=== PATIENT | female | born 1940 | race Caucasian/White ===

== ENCOUNTER 2016-10-12 13:25 | Inpatient (IN) | payer MEDICARE, OTHER ==
[~2016-10-12] VITALS: Ht 157.5 cm; Wt 82.6 kg
[~2016-10-12 13:25] MED LIST: ARIC5TAB PO; ASPI81TA82 PO; LEVO75TA3 PO; LEXA20TA PO; LORA0.5T TOP; MIRT30TA PO; PRAV80 PO; PRIN10TA PO; PROT40TA PO; ZYPR10TA9 PO
--- NOTE | 2016-10-12 13:41 | PD ---
HPI Chief Complaint: Monte act Time Seen by Provider: 13:41 Travel History International Travel<30 days: No Contact w/Intl Traveler<30days: No Traveled to known affect area: No History of Present Illness HPI 76-year-old female with history of dementia with behavioral disturbance presents to emergency department for evaluation under [place] act. Patient has been combative with staff at her place of residence. She has been pulling fire alarms and threatening homicide to staff. She has been refusing her medication. She is sent here for psychiatric evaluation and med stabilization. Patient states that she is fine. Denies any acute medical needs at this time. States that she "does not know what they are talking about." PFSH Past Medical History Asthma: No Autoimmune Disease: No Blood Disorders: No Bipolar Disorder: Yes Anxiety: Yes Depression: Yes Heart Rhythm Problems: Yes (ATRIAL FIB) Cancer: No Cardiovascular Problems: No Chemotherapy: No COPD: No Dementia: Yes Diabetes: Yes Diminished Hearing: No Endocrine: No Genitourinary: No Immune Disorder: No Musculoskeletal: No Neurologic: No Psychiatric: Yes Respiratory: No Radiation Therapy: No : 2 Para: 2 Past Surgical History Abdominal Surgery: Yes (APPENDECTOMY) Appendectomy: Yes Endocrine Surgery: Yes (TONSILLECTOMY AGE 18) Gynecologic Surgery: Yes (HYSTERECTOMY) Hysterectomy: Yes Pacemaker: No Tonsillectomy: Yes Social History Alcohol Use: Yes (none in the past few years) Tobacco Use: Yes (none in the past few years) Substance Use: Yes Allergies-Medications (Allergen,Severity, Reaction): Coded Allergies: [place] (Verified Allergy, Severe, 02/24/14) Haldol (Unverified Allergy, Unknown, 02/25/14) Per MAR from facility. Neosporin (Unverified Allergy, Unknown, 02/24/14) Penicillin (Unverified Allergy, Unknown, 02/24/14) Prozac (Verified Allergy, Unknown, UNKNOWN, 02/24/14) Risperdal (Unverified Allergy, Unknown, 02/24/14) Reported Meds & Prescriptions Reported Meds & Active Scripts Active Protonix (Pantoprazole Sodium) 40 Mg Tabdr 40 Mg PO DAILY 30 Days Reported Prinivil (Lisinopril) 10 Mg Tab 10 Mg PO DAILY Pravastatin Sodium 80 Mg Tab 1 Tab PO DAILY Zyprexa Zydis (Olanzapine) 10 Mg Tab 5 Mg PO Q12 Protonix (Pantoprazole Sodium) 40 Mg Tab 40 Mg PO DAILY Mirtazapine 30 Mg Tab 30 Mg PO HS Lexapro (Escitalopram Oxalate) 20 Mg Tab 20 Mg PO DAILY Levothyroxine 75 mcg (Levothyroxine Sodium) 75 Mcg Tab 1 Tab PO DAILY Lorazepam 0.5 Mg Tab 0.5 Mg TOP BID Aricept (Donepezil HCl) 5 Mg Tab 5 Mg PO DAILY Aspir-81 (Aspirin) 81 Mg Tab 81 Mg PO DAILY Review of Systems ROS Limitations: Poor Historian Except as stated in HPI: all other systems reviewed are Neg Physical Exam Exam Limitations: Poor Historian Narrative GENERAL: Well-nourished elderly female patient, in no acute distress SKIN: Focused skin assessment warm/dry. HEAD: Atraumatic. Normocephalic. EYES: Pupils equal and round. No scleral icterus. No injection or drainage. ENT: No nasal bleeding or discharge. Mucous membranes pink and moist. NECK: Trachea midline. No JVD. CARDIOVASCULAR: Regular rate and rhythm. No murmur appreciated. RESPIRATORY: No accessory muscle use. Clear to auscultation. Breath sounds equal bilaterally. GASTROINTESTINAL: Abdomen soft, non-tender, nondistended. Hepatic and splenic margins not palpable. MUSCULOSKELETAL: No obvious deformities. No clubbing. No cyanosis. No edema. NEUROLOGICAL: Awake and alert. No obvious cranial nerve deficits. Motor grossly within normal limits. Normal speech. Data Data Last Documented VS Vital Signs Date Time Temp Pulse Resp B/P Pulse Ox O2 Delivery O2 Flow Rate FiO2 10/12/16 18:33 95 18 132/74 95 Room Air 10/12/16 16:37 97.1 Orders Complete Blood Count With Diff (10/12/16 13:41) Comprehensive Metabolic Panel (10/12/16 13:41) Urinalysis - C+S If Indicated (10/12/16 13:41) Electrocardiogram (10/12/16 13:41) Psych Screen (10/12/16 13:41) Drug Screen, Random Urine (10/12/16 13:41) Alcohol (Ethanol) (10/12/16 13:41) Urine Culture (10/12/16 17:45) Labs Laboratory Tests Test 10/12/16 10/12/16 13:50 17:45 White Blood Count 4.6 TH/MM3 Red Blood Count 3.89 MIL/MM3 Hemoglobin 10.7 GM/DL Hematocrit 33.6 % Mean Corpuscular Volume 86.4 FL Mean Corpuscular Hemoglobin 27.5 PG Mean Corpuscular Hemoglobin 31.9 % Concent Red Cell Distribution Width 15.7 % Platelet Count 235 TH/MM3 Mean Platelet Volume 9.0 FL Neutrophils (%) (Auto) 48.0 % Lymphocytes (%) (Auto) 41.9 % Monocytes (%) (Auto) 7.3 % Eosinophils (%) (Auto) 2.1 % Basophils (%) (Auto) 0.7 % Neutrophils # (Auto) 2.2 TH/MM3 Lymphocytes # (Auto) 1.9 TH/MM3 Monocytes # (Auto) 0.3 TH/MM3 Eosinophils # (Auto) 0.1 TH/MM3 Basophils # (Auto) 0.0 TH/MM3 CBC Comment DIFF FINAL Differential Comment Sodium Level 138 MEQ/L Potassium Level 4.6 MEQ/L Chloride Level 107 MEQ/L Carbon Dioxide Level 24.6 MEQ/L Anion Gap 6 MEQ/L Blood Urea Nitrogen 9 MG/DL Creatinine 1.09 MG/DL Estimat Glomerular Filtration 49 ML/MIN Rate Random Glucose 106 MG/DL Calcium Level 9.0 MG/DL Total Bilirubin 0.3 MG/DL Aspartate Amino Transf 20 U/L (AST/SGOT) Alanine Aminotransferase 18 U/L (ALT/SGPT) Alkaline Phosphatase 48 U/L Total Protein 5.8 GM/DL Albumin 3.0 GM/DL Ethyl Alcohol Level LESS THAN 3 MG/DL Urine Color YELLOW Urine Turbidity CLEAR Urine pH 6.5 Urine Specific [place] 1.012 Urine Protein NEG mg/dL Urine Glucose (UA) NEG mg/dL Urine Ketones NEG mg/dL Urine Occult Blood NEG Urine Nitrite NEG Urine Bilirubin NEG Urine Urobilinogen LESS THAN 2.0 MG/DL Urine Leukocyte Esterase LARGE Urine RBC 1 /hpf Urine WBC 29 /hpf Urine Squamous Epithelial <1 /hpf Cells Urine Bacteria RARE /hpf Urine Hyaline Casts 10 /lpf Urine Mucus FEW /lpf Microscopic Urinalysis Comment CULTURE INDICATED Urine Opiates Screen NEG Urine Barbiturates Screen NEG Urine Amphetamines Screen NEG Urine Benzodiazepines Screen POS Urine Cocaine Screen NEG Urine Cannabinoids Screen NEG MDM Medical Decision Making Medical Screen Exam Complete: Yes Emergency Medical Condition: Yes Medical Record Reviewed: Yes Differential Diagnosis Mood disorder versus personality disorder versus dementia versus adjustment reaction disorder versus UTI Narrative Course 76-year-old female presents to the emergency department under a Monte act for psychiatric evaluation. Patient appears without distress. Laboratory Tests Test 10/12/16 10/12/16 13:50 17:45 White Blood Count 4.6 TH/MM3 Red Blood Count 3.89 MIL/MM3 Hemoglobin 10.7 GM/DL Hematocrit 33.6 % Mean Corpuscular Volume 86.4 FL Mean Corpuscular Hemoglobin 27.5 PG Mean Corpuscular Hemoglobin 31.9 % Concent Red Cell Distribution Width 15.7 % Platelet Count 235 TH/MM3 Mean Platelet Volume 9.0 FL Neutrophils (%) (Auto) 48.0 % Lymphocytes (%) (Auto) 41.9 % Monocytes (%) (Auto) 7.3 % Eosinophils (%) (Auto) 2.1 % Basophils (%) (Auto) 0.7 % Neutrophils # (Auto) 2.2 TH/MM3 Lymphocytes # (Auto) 1.9 TH/MM3 Monocytes # (Auto) 0.3 TH/MM3 Eosinophils # (Auto) 0.1 TH/MM3 Basophils # (Auto) 0.0 TH/MM3 CBC Comment DIFF FINAL Differential Comment Sodium Level 138 MEQ/L Potassium Level 4.6 MEQ/L Chloride Level 107 MEQ/L Carbon Dioxide Level 24.6 MEQ/L Anion Gap 6 MEQ/L Blood Urea Nitrogen 9 MG/DL Creatinine 1.09 MG/DL Estimat Glomerular Filtration 49 ML/MIN Rate Random Glucose 106 MG/DL Calcium Level 9.0 MG/DL Total Bilirubin 0.3 MG/DL Aspartate Amino Transf 20 U/L (AST/SGOT) Alanine Aminotransferase 18 U/L (ALT/SGPT) Alkaline Phosphatase 48 U/L Total Protein 5.8 GM/DL Albumin 3.0 GM/DL Ethyl Alcohol Level LESS THAN 3 MG/DL Urine Color YELLOW Urine Turbidity CLEAR Urine pH 6.5 Urine Specific [place] 1.012 Urine Protein NEG mg/dL Urine Glucose (UA) NEG mg/dL Urine Ketones NEG mg/dL Urine Occult Blood NEG Urine Nitrite NEG Urine Bilirubin NEG Urine Urobilinogen LESS THAN 2.0 MG/DL Urine Leukocyte Esterase LARGE Urine RBC 1 /hpf Urine WBC 29 /hpf Urine Squamous Epithelial <1 /hpf Cells Urine Bacteria RARE /hpf Urine Hyaline Casts 10 /lpf Urine Mucus FEW /lpf Microscopic Urinalysis Comment CULTURE INDICATED Urine Opiates Screen NEG Urine Barbiturates Screen NEG Urine Amphetamines Screen NEG Urine Benzodiazepines Screen POS Urine Cocaine Screen NEG Urine Cannabinoids Screen NEG CBC and BMP are without acute concern. Patient be treated for UTI based on lab results. She is started on Macrobid. She is medically cleared and a psychiatric screening for further evaluation and disposition. Mental health screening discussed with the patient. Psychiatric screen ordered. Diagnosis Primary Impression: Bipolar 1 disorder Additional Impression: UTI (urinary tract infection) Qualified Code: N39.0 - Urinary tract infection without hematuria, site unspecified Condition: Stable Sara Greer Oct 12, 2016 13:41
[2016-10-12 14:19] LABS: AUTOMATED NEUTROPHIL # 2.2 TH/MM3 (1.8-7.7); BASOPHIL % 0.7 % (0.0-2.0); EOSINOPHIL # 0.1 TH/MM3 (0-0.4); EOSINOPHIL % 2.1 % (0.0-4.0); HEMATOCRIT 33.6 % (35.0-46.0); HEMO FLAGS DIFF FINAL; LYMPH % 41.9 % (9.0-44.0); LYMPHOCYTE # 1.9 TH/MM3 (1.0-4.8); MEAN CELL VOLUME 86.4 FL (80.0-100.0); MEAN CORPUSCULAR HEMOGLOBIN 27.5 PG (27.0-34.0); MEAN CORPUSCULAR HGB CONC 31.9 % (32.0-36.0); MONO % 7.3 % (0.0-8.0); PLATELET COUNT 235 TH/MM3 (150-450); RED BLOOD COUNT 3.89 MIL/MM3 (4.00-5.30); RED CELL DISTRIBUTION WIDTH 15.7 % (11.6-17.2); WHITE BLOOD COUNT 4.6 TH/MM3 (4.0-11.0)
[2016-10-12 14:35] LABS: ALT (GPT) 18 U/L (10-53); ANION GAP 6 MEQ/L (5-15); AST (GOT) 20 U/L (15-37); BICARBONATE 24.6 MEQ/L (21.0-32.0); BLOOD UREA NITROGEN 9 MG/DL (7-18); CHLORIDE 107 MEQ/L (98-107); GLOMERULAR FILTRATION RATE 49 ML/MIN (>89); POTASSIUM 4.6 MEQ/L (3.5-5.1); SODIUM (NA) 138 MEQ/L (136-145)
[2016-10-12 14:37] VITALS: BP 138/68; PULSE 70; RESP 16; TEMP 98.2; O2SAT 98
[2016-10-12 14:37] LABS: ALKALINE PHOSPHATASE 48 U/L (45-117); TOTAL BILIRUBIN ADULT 0.3 MG/DL (0.2-1.0)
[2016-10-12 16:37] VITALS: BP 141/64; PULSE 91; RESP 18; TEMP 97.1; O2SAT 99
[2016-10-12 18:08] LABS: AMPHETAMINE, URINE NEG (NEG); BARBITURATES, URINE NEG (NEG); COCAINE, URINE NEG (NEG)
[2016-10-12 18:10] LABS: BACTERIA, URINE RARE /hpf; BLOOD, URINE NEG (NEG); GLUCOSE,URINE NEG (NEG); HYALINE CAST, URINE 10 /lpf (RARE); KETONE, URINE NEG (NEG); MUCUS URINE FEW /lpf (OCC); NITRITE,URINE NEG (NEG); PH, URINE 6.5 (5.0-8.5); SQUAMOUS EPITHELIAL CELL URINE <1 /hpf (0-5); URINE COLOR YELLOW (YELLW/STRAW)
[2016-10-12 18:11] LABS: COMMENT (UR) CULTURE INDICATED; CULTURE IF INDICATED CULTURE INDICATED
[2016-10-12 18:33] VITALS: BP 132/74; PULSE 95; RESP 18; O2SAT 95
[2016-10-12] MEDS: NITROFURANTOIN MONOHYD MACROCR 100 MG CAP PO SCH (21:27)
[2016-10-12 22:00] VITALS: BP 152/74; PULSE 89; RESP 20; O2SAT 98
[2016-10-12] MEDS ORDERED: ASPI81CH CHEW (22:00)
[2016-10-12] MEDS ORDERED: TEMA30CA PO (22:00)
[2016-10-12] MEDS ORDERED: ALEN1TAB48 PO (22:00)
[2016-10-12] MEDS ORDERED: CLON1TAB PO (22:00)
[2016-10-12] MEDS ORDERED: SERO100T PO ×2 (22:00)
[2016-10-12] MEDS ORDERED: TRAM50TA PO (22:00)
[2016-10-12] MEDS ORDERED: DONE10TA7 PO (22:00)
[2016-10-12] MEDS ORDERED: SYNT88TA PO (22:00)
[2016-10-12] MEDS ORDERED: AMIT25TA9 PO (22:00)
[2016-10-12] MEDS ORDERED: DICL1CAP4 PO (22:00)
[2016-10-12] MEDS ORDERED: CITA40TA4 PO (22:00)
[2016-10-12] MEDS ORDERED: PRAV80TA2 PO (22:00)
[2016-10-12] MEDS ORDERED: LOSA25TA PO (22:00)
[2016-10-12] MEDS ORDERED: ARIP1TAB16 PO (22:00)
[2016-10-12] MEDS ORDERED: LORazepam 0.5 MG TAB PO ONE (22:15)
[2016-10-12] MEDS ORDERED: OLANZapine 5 MG TAB PO ONE (22:15)
[2016-10-13] MEDS ORDERED: LORazepam 2 MG/ML VIAL - age > 65 yrs IM PRN (00:15)
[2016-10-13] MEDS ORDERED: ALUMINUM/MAGNESIUM/SIMETH 30 ML CUP PO PRN (00:15)
[2016-10-13 01:40] VITALS: BP 177/81; PULSE 84; RESP 18; TEMP 97; O2SAT 99
[2016-10-13] MEDS: TEMAZEPAM 15 MG CAP PO PRN (01:43)
[2016-10-13] MEDS: ACETAMINOPHEN 325 MG TAB PO PRN ×2 (04:47→09:43)
[2016-10-13] MEDS: LEVOTHYROXINE SODIUM 88 MCG TAB PO SCH (04:48)
[2016-10-13 05:46] VITALS: BP 139/72; PULSE 80; RESP 16; TEMP 96.9; O2SAT 96
[2016-10-13] MEDS: ARIPiprazole 2 MG TAB PO SCH (09:00)
[2016-10-13] MEDS: DICLOFENAC SODIUM 75 MG DELAYED RELEASE TAB PO SCH ×2 (09:41→21:04)
[2016-10-13] MEDS: NITROFURANTOIN MONOHYD MACROCR 100 MG CAP PO SCH ×2 (09:41→18:31)
[2016-10-13] MEDS: LOSARTAN 25 MG TAB PO SCH (09:42)
[2016-10-13] MEDS: clonazePAM 1 MG TAB PO SCH ×3 (09:42→18:31)
[2016-10-13] MEDS: QUEtiapine FUMARATE 100 MG TAB PO SCH (09:42)
[2016-10-13] MEDS: CITALOPRAM HYDROBROMIDE 40 MG TAB PO SCH (09:42)
[2016-10-13] MEDS: ASPIRIN 81 MG CHEW TAB PO SCH (09:42)
--- NOTE | 2016-10-13 13:56 | EKG ---
Date Performed: 10/12/2016 Time Performed: 17:49:21 PTAGE: 76 years EKG: Sinus rhythm MODERATE T-WAVE ABNORMALITY, CONSIDER ANTERIOR ISCHEMIA ABNORMAL ECG PREVIOUS TRACING : 03/10/2014 11.02 Compared to the previous tracing anterior T wave changes ar e now present. Consider anterior ischemia. DOCTOR: Josue Reed Interpretating Date/Time 10/13/2016 13:55:37
--- NOTE | 2016-10-13 16:14 | PD.CONS ---
HPI Service [facility] Hospitalists Consult Requested By Primary Care Physician Silvia Rodriguez MD Diagnoses: History of Present Illness Pt is 76 yo with bipolar d/o, dementia, psychosis who admitted to psych unit under Monte Act. Per chart she became paranoid and agitated and [place] Acted by Police. When I arrived pt sitting in dayroom and very cooperative. Able to give some hx but clearly with some delusions. denies any medical complaints. Review of Systems Other denies any cp/sob Past Family Social History Past Medical History bipolar hypothyroidism htn appe hysterectomy tonsillectomy dementia Reported Medications Seroquel (Quetiapine Fumarate) 100 Mg Tab 100 Mg PO HS Clonazepam 1 Mg Tab 1 Mg PO TID Zorvolex (Diclofenac) 35 Mg Cap 75 Mg PO BID Tramadol (Tramadol HCl) 50 Mg Tab 50 Mg PO Q12HR PRN Temazepam 30 Mg Cap 30 Mg PO HS PRN Amitriptyline (Amitriptyline HCl) 25 Mg Tab 25 Mg PO HS Donepezil 10 Mg Tab 10 Mg PO HS Pravastatin 80 Mg Tab 80 Mg PO HS Alendronate (Alendronate Sodium) 70 Mg Tab 70 Mg PO Q7D Aripiprazole 2 Mg Tab 2 Mg PO DAILY Synthroid (Levothyroxine Sodium) 88 Mcg Tab 88 Mcg PO DAILY Losartan (Losartan Potassium) 25 Mg Tab 25 Mg PO DAILY Citalopram (Citalopram Hydrobromide) 40 Mg Tab 40 Mg PO DAILY Aspirin 81 Mg Chew 81 Mg CHEW DAILY Seroquel (Quetiapine Fumarate) 100 Mg Tab 100 Mg PO DAILY Allergies: Coded Allergies: [place] (Verified Allergy, Severe, 02/24/14) Haldol (Unverified Allergy, Unknown, 02/25/14) Per MAR from facility. Neosporin (Unverified Allergy, Unknown, 02/24/14) Penicillin (Unverified Allergy, Unknown, 02/24/14) Prozac (Verified Allergy, Unknown, UNKNOWN, 02/24/14) Risperdal (Unverified Allergy, Unknown, 02/24/14) Family History nc Social History no etoh/tob Physical Exam Vital Signs mild dementia heart reg lung cta abd s/nt ext on edema Vital Signs Date Time Temp Pulse Resp B/P Pulse Ox O2 Delivery O2 Flow Rate FiO2 10/13/16 05:46 96.9 80 16 139/72 96 10/13/16 01:40 97.0 84 18 177/81 99 10/12/16 22:00 89 20 152/74 98 Room Air 10/12/16 18:33 95 18 132/74 95 Room Air 10/12/16 16:37 97.1 91 18 141/64 99 Room Air Laboratory Laboratory Tests Test 10/12/16 17:45 Urine Color YELLOW Urine Turbidity CLEAR Urine pH 6.5 Urine Specific [place] 1.012 Urine Protein NEG Urine Glucose (UA) NEG Urine Ketones NEG Urine Occult Blood NEG Urine Nitrite NEG Urine Bilirubin NEG Urine Urobilinogen LESS THAN 2.0 Urine Leukocyte Esterase LARGE Urine RBC 1 Urine WBC 29 Urine Squamous Epithelial <1 Cells Urine Bacteria RARE Urine Hyaline Casts 10 Urine Mucus FEW Microscopic Urinalysis Comment CULTURE INDICATED Urine Opiates Screen NEG Urine Barbiturates Screen NEG Urine Amphetamines Screen NEG Urine Benzodiazepines Screen POS Urine Cocaine Screen NEG Urine Cannabinoids Screen NEG Date/Time Procedure Status Source Growth 10/12/16 17:45 Urine Culture - Preliminary Resulted Urine Random Urine IMMATURE GROWTH - REINCUBATE Result Diagram: 10/12/16 1350 10/12/16 1350 Assessment and Plan Problem List: (1) Bipolar 1 disorder Status: Acute Plan: Pt with some dementia and bipoar d/o with psychosis. Medically pt appears stable cont currrent meds for htn/hypothyroidism/hyperlipidema psych issues per Dr Henry f/u urine cx (2) Hypothyroid Status: Chronic (3) HTN (hypertension) Status: Chronic Alvin Trejo MD Oct 13, 2016 16:14
--- NOTE | 2016-10-13 17:39 | MH ---
cc: MALKA GARDUNO DATE OF ADMISSION: 10/12/2016 PRESENTING CHIEF COMPLAINT AND HISTORY OF PRESENT ILLNESS This 76-year-old white female was brought to the emergency room of this hospital from the assisted-living facility under the [place] Act initiated by the police. She reportedly has been increasingly aggressive, paranoid and had made threats of harm to the staff. In the emergency room, she was evaluated by the emergency room physician and was considered medically stable. She was evaluated by the psychiatric screener and was found to be quite guarded and denied the information provided in the Monte Act. The case was discussed with me and it was felt she needed to be hospitalized for further assessment treatment. Ms. Glasgow is well-known to me from her previous admissions to this hospital dating back to 2004 and then in February of 2014. She carries a diagnosis of bipolar affective disorder and both of her previous admissions resulted from severe depression with psychotic symptoms in the form of delusions believing that her food was being poisoned and she refused to eat. It took her a long time to stabilize. After discharge from her last admission I continued to follow her in my office. She continued to progress steadily to the point where from there she was able to move into her own apartment was able to drive a car and take care of her activities of daily living. However, towards the end, i.e., around April of 2016, she began to focus very much on her weight gain and as such the dose of Zyprexa was decreased per her request. She was reminded that her delusions might re-appear. In her last session on 05/05/16, she displayed some paranoia believing that her CPA, who is her power of real estate attorney, had refused her monthly payments of $1200.00 because the tenants of her rental property were no longer making payments. In addition, she began to alienate herself from her sister who lives in the area and is very supportive of her. The dose of Zyprexa was increased to 10 milligrams at bedtime. Her two follow up appointments in May were no shows and since then I have not seen her in my office. I did get discharge papers from admission to [facility] where she was admitted in May of 2016. While there she was seen in consultation by a psychiatrist, Angie Boyd. She was discharged on Abilify 2 milligrams at bedtime and Celexa 40 milligrams daily. At the time of this evaluation, Ms. Glasgow was anxious, apprehensive and guarded. She seemed very pleased and reassured with my presence and remarked, "I'm so glad to see you, now I feel safe here". She went on to state that since admission she has been afraid that people are going to harm her. When asked about her understanding of the reason for this hospitalization she gave a very detailed and elaborate account "my CPA who is my power of real estate attorney, stopped giving me the checks. He sold my condominium and put me in the assisted living facility. I've been there for a couple of months. I don't like that place. The food there is poisoned". She stated that she has not been sleeping well and her appetite had decreased though she denied any significant weight loss. When inquired as to how her mood has been over the past three months, she responded, "Not too bad". On direct questioning, she denied entertaining any suicidal thoughts or any previous suicide attempts. However my records indicate that she had previously attempted suicide by overdose. On further direct questioning, she denied experiencing delusions of grandeur, euphoria, racing thoughts, spending sprees, hypersexuality, et cetera. PAST PSYCHIATRIC HISTORY: She has had several psychiatric hospitalizations in 2003 and 2004. She has previously been admitted to [facility] as well. Her last admission to this hospital was in February 2014 under my care. Since then she has been admitted to [facility] in May 2016. As mentioned she had been followed by me in the office up until April 2016. Her medications under my service were Lexapro 20 mg daily, Zyprexa 10 mg daily, Xanax 0.5 mg three times a day p.r.n. for anxiety, Aricept 10 mg p.o. daily, Lexapro 20 mg daily. PAST MEDICAL HISTORY: 1. She has had history of urinary tract infection. A routine urinalysis done in the ER also recommended culture and sensitivity. 2. In addition she has history of hyponatremia secondary SIADH. 3. Hypertension. 4. Hypothyroidism. 5. She has also has had questionable history of diabetes but has not been any medication for it. 6. She has reported history of atrial fibrillation. 7. She is status post appendectomy, hysterectomy, tonsillectomy. ALLERGIES: SHE IS ALLERGIC TO: 1. LITHIUM. 2. HALDOL. 3. NEOSPORIN. 4. PENICILLIN. 5. PROZAC. 6. RISPERDAL. CURRENT MEDICATIONS: Her current medications are: 1. Pravachol 80 milligrams at bedtime. 2. Aricept 10 milligrams p.o. at bedtime. 3. Elavil 25 milligrams at bedtime. 4. Seroquel 100 milligrams daily and 100 at bedtime. 5. Abilify 2 milligrams daily. 6. Voltaren 25 milligrams twice a day. 7. Klonopin 1 milligram three times a day. 8. Aspirin 81 milligrams daily. 9. Celexa 40 milligrams daily. 10. Cozaar 25 milligrams daily. 11. Synthroid 88 micrograms daily. 12. Restoril 30 milligrams at bedtime PRN for insomnia. 13. Microbid 100 milligrams twice a day p.c. 14. She was also on Tramadol which I discontinued to avoid any possibility of serotonin syndrome in combination with Celexa. FAMILY HISTORY: Her parents are . She had a brother who and four sisters, one of whom lives locally. There is no reported family history of psychiatric illness or substance abuse. PERSONAL AND SOCIAL HISTORY: She was born in [facility] and dropped out of school in the 9th grade. 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 She was three times. Her first . She her second and the third also . She has two sons and a daughter. She does have a history of alcohol abuse; however, claimed that she has not used any alcoholic beverage for several years. She denied any drug abuse. She is currently living in an assisted living facility. CLINICAL OBSERVATION AND MENTAL STATUS EXAMINATION: At the time of this evaluation Miss Glasgow presented as a somewhat poorly groomed unkempt white female who looked her stated age. She was quite anxious-looking and very apprehensive. She was over-elaborate and overinclusive in her responses to questions mostly centering on what she described as "a conspiracy" on the part of her CPA and her sister. She also verbalized similar fear of the staff on the unit claiming that some of the staff were out to harm her. No overt anger or hostility. However, she responded very well to reassurance and support from me. No bizarre behavioral mannerisms were noticed. Her speech was coherent and appropriate, not rapid or pressured. Her affect was anxious, somewhat blunted. Subjectively she described her mood as "I haven't been feeling too good." Thought processes revealed some circumstantiality but no tangentiality or looseness of associations or flight of ideas. As mentioned she was preoccupied with delusions of persecution. No auditory or visual hallucinations were noticed or reported. She denied active suicidal or homicidal ideations or intent at this time. She had previously attempted suicide. She denied any previous suicide attempts. However my records indicate that she had previously attempted suicide once by overdose several years ago. Cognitive functions: She was alert, oriented to place, person and situation. She gave the date as "October 13, it is ." Memory: Immediate - she could 5 digits forward and three digits backward. Recent - she could recall only two out of three objects after five minutes. Remote - she could recall presidents up to President Obama only. Her attention and concentration were impaired. She could do serial 7's up to 86 only. Her insight and judgment were felt to be fair. REVIEW OF SYSTEMS: She denied any diarrhea, vomiting or abdominal pain. She denied any dysuria, hematuria or frequency. She denied any chest pain, palpitation, dyspnea on exertion. She denied muscle weakness, numbness or history of seizures. PHYSICAL EXAMINATION: Physical examination was not done as this has already been done in the emergency room and will also be done by the medical administrator on the case. DIAGNOSTIC IMPRESSION: AXIS I: Bipolar affective disorder depressed with psychotic features. Dementia, mild. AXIS II: No diagnosis. AXIS III: Hyponatremia secondary to SIADH. Hypothyroidism. History of atrial fibrillation. Urinary tract infection. Questionable history of diabetes. Questionable history of chronic obstructive pulmonary disease. Hypertension. Hyperlipidemia. AXIS IV: Severity of psychosocial stressors, moderate, i.e., moderate, i.e., chronic psychiatric illness, multiple medical problems, change in living situation. AXIS V: Current GAF score 30. FORMULATION AND TREATMENT PLAN: Based on this evaluation and my knowledge of her case, Ms. Glasgow suffers from bipolar affective disorder. She has had very few hypomanic episodes and mostly she has required hospitalizations due to severe depression with psychotic symptoms. The clinical presentation at this time is similar to the one in 2013 and in 2004. Another factor that seems to have contributed to her current decompensation is noncompliance. As I mentioned, she had started overemphasizing her weight gain and insisted on reducing the dose of her medications, not realizing the potential complications including the hospitalization. As such as she will be restarted on the Zyprexa, the Lexapro, Remeron, Aricept Xanax and Restoril. She usually takes a long time to stabilize. I hope this will not be the case this time as she has established good rapport with me and is open to any treatment plan / medications that will be recommended. Simultaneously she will be involved in individual psychotherapy primarily supportive and educative in nature. She will participate in various other unit activities i.e. occupational therapy, recreational therapy, group therapy. Medical consult will be requested for assistance in the management of her medical problems. Her identified problems are: 1. Depression. 2. Psychosis. 3. Noncompliance. 4. Current psychosocial stressors. Her assets are: 1. She is verbal. 2. Ability to access healthcare. Her estimated length of stay is five to ten days. MD YAMIL Portillo/VERENICE /4:20 PM /5:01 PM
[2016-10-13 19:18] VITALS: BP 137/67; PULSE 86; RESP 16; TEMP 97.3; O2SAT 96
[2016-10-13] MEDS ORDERED: AMITRIPTYLINE HCL 25 MG TAB PO SCH (21:00)
[2016-10-13] MEDS ORDERED: QUEtiapine FUMARATE 100 MG TAB PO SCH (21:00)
[2016-10-13] MEDS: DONEPEZIL HCL 5 MG TAB PO SCH (21:04)
[2016-10-13] MEDS: PRAVASTATIN SOD 80 MG TAB PO SCH (21:04)
[2016-10-13] MEDS: MAGNESIUM HYDROXIDE SUSP 30 ML CUP PO PRN (21:27)
[2016-10-14] MEDS: LEVOTHYROXINE SODIUM 88 MCG TAB PO SCH (05:44)
[2016-10-14 06:22] VITALS: BP 163/70; PULSE 98; TEMP 98; O2SAT 95
[2016-10-14] MEDS: ACETAMINOPHEN 325 MG TAB PO PRN (06:24)
[2016-10-14] MEDS ORDERED: ALENDRONATE 70 MG PO SCH (09:00)
[2016-10-14] MEDS: ASPIRIN 81 MG CHEW TAB PO SCH (09:00)
[2016-10-14] MEDS: ARIPiprazole 2 MG TAB PO SCH (09:00)
[2016-10-14] MEDS: QUEtiapine FUMARATE 100 MG TAB PO SCH (09:28)
[2016-10-14] MEDS: CITALOPRAM HYDROBROMIDE 40 MG TAB PO SCH (09:28)
[2016-10-14] MEDS: DICLOFENAC SODIUM 75 MG DELAYED RELEASE TAB PO SCH ×2 (09:29→21:00)
[2016-10-14] MEDS: clonazePAM 1 MG TAB PO SCH ×2 (09:29→13:00)
[2016-10-14] MEDS: LOSARTAN 25 MG TAB PO SCH (09:29)
[2016-10-14] MEDS: NITROFURANTOIN MONOHYD MACROCR 100 MG CAP PO SCH ×2 (09:29→18:42)
[2016-10-14 11:37] LABS: ALKALINE PHOSPHATASE 52 U/L (45-117); ALT (GPT) 16 U/L (10-53); ANION GAP 8 MEQ/L (5-15); AST (GOT) 15 U/L (15-37); BICARBONATE 26.4 MEQ/L (21.0-32.0); BLOOD UREA NITROGEN 14 MG/DL (7-18); CHLORIDE 104 MEQ/L (98-107); FREE T4 1.16 NG/DL (0.76-1.46); GLOMERULAR FILTRATION RATE 53 ML/MIN (>89); HDL CHOLESTEROL 43.5 MG/DL (40.0-60.0); LDL CHOLESTEROL 47 MG/DL (0-99); POTASSIUM 4.3 MEQ/L (3.5-5.1); SODIUM (NA) 138 MEQ/L (136-145); TOTAL BILIRUBIN ADULT 0.4 MG/DL (0.2-1.0)
[2016-10-14 14:26] LABS: HEMOGLOBIN A1a 1.5 %; HEMOGLOBIN A1b 0.8 %; HEMOGLOBIN Ao 85.2 %; HEMOGLOBIN F 1.1 %; HEMOGLOBIN P3 3.4 %
[2016-10-14 18:38] VITALS: BP 161/77; PULSE 84; RESP 18; TEMP 97.6; O2SAT 95
[2016-10-14] MEDS: clonazePAM 0.5 MG TAB PO SCH (18:41)
[2016-10-14 19:47] LABS: BLOOD, URINE NEG (NEG); COMMENT (UR) CULT NOT INDICATED; CULTURE IF INDICATED CULT NOT INDICATED; GLUCOSE,URINE NEG (NEG); HYALINE CAST, URINE 2 /lpf (RARE); KETONE, URINE NEG (NEG); MUCUS URINE FEW /lpf (OCC); NITRITE,URINE NEG (NEG); SQUAMOUS EPITHELIAL CELL URINE 1 /hpf (0-5); URINE COLOR YELLOW (YELLW/STRAW)
[2016-10-14] MEDS: TEMAZEPAM 15 MG CAP PO PRN (21:02)
[2016-10-14] MEDS: PRAVASTATIN SOD 80 MG TAB PO SCH (21:02)
[2016-10-14] MEDS: DONEPEZIL HCL 5 MG TAB PO SCH (21:34)
[2016-10-15] MEDS: ACETAMINOPHEN 325 MG TAB PO PRN ×2 (04:14→08:58)
[2016-10-15] MEDS: LEVOTHYROXINE SODIUM 88 MCG TAB PO SCH (05:08)
[2016-10-15 06:23] VITALS: BP 145/70; PULSE 86; RESP 18; TEMP 98; O2SAT 92
[2016-10-15] MEDS: clonazePAM 0.5 MG TAB PO SCH ×3 (08:25→20:04)
[2016-10-15] MEDS: NITROFURANTOIN MONOHYD MACROCR 100 MG CAP PO SCH ×2 (08:25→20:04)
[2016-10-15] MEDS: DICLOFENAC SODIUM 75 MG DELAYED RELEASE TAB PO SCH ×2 (08:25→20:04)
[2016-10-15] MEDS: LOSARTAN 25 MG TAB PO SCH (08:25)
[2016-10-15] MEDS: ESCITALOPRAM OXALATE 20 MG TAB PO SCH (08:25)
[2016-10-15] MEDS: ASPIRIN 81 MG CHEW TAB PO SCH (08:26)
[2016-10-15] MEDS: ARIPiprazole 5 MG TAB PO SCH (08:26)
--- NOTE | 2016-10-15 13:33 | EKG ---
Date Performed: 10/14/2016 Time Performed: 18:18:20 PTAGE: 76 years EKG: Sinus rhythm WITH SINUS ARRHYTHMIA MODERATE T-WAVE ABNORMALITY, CONSIDER ANTERIOR ISCHEMIA ABNORMAL ECG Compared to prior tracing no significant change PREVIOUS TRACING : 10/12/2016 17.49 DOCTOR: Alexis Quezada Interpretating Date/Time 10/15/2016 13:31:21
[2016-10-15] MEDS: PRAVASTATIN SOD 80 MG TAB PO SCH (20:04)
[2016-10-15] MEDS: DONEPEZIL HCL 5 MG TAB PO SCH (20:04)
[2016-10-15] MEDS: LORazepam 0.5 MG TAB age > 65 yrs PO PRN (23:42)
[2016-10-15] MEDS: TEMAZEPAM 15 MG CAP PO PRN (23:42)
[2016-10-16] MEDS: ACETAMINOPHEN 325 MG TAB PO PRN ×2 (00:40→22:59)
[2016-10-16] MEDS: LEVOTHYROXINE SODIUM 88 MCG TAB PO SCH (06:20)
[2016-10-16 06:23] VITALS: BP 167/74; PULSE 86; RESP 16; TEMP 97.1; O2SAT 96
[2016-10-16] MEDS: clonazePAM 0.5 MG TAB PO SCH ×3 (09:13→17:47)
[2016-10-16] MEDS: DICLOFENAC SODIUM 75 MG DELAYED RELEASE TAB PO SCH ×2 (09:14→21:44)
[2016-10-16] MEDS: LOSARTAN 25 MG TAB PO SCH (09:14)
[2016-10-16] MEDS: ASPIRIN 81 MG CHEW TAB PO SCH (09:14)
[2016-10-16] MEDS: ESCITALOPRAM OXALATE 20 MG TAB PO SCH (09:14)
[2016-10-16] MEDS: NITROFURANTOIN MONOHYD MACROCR 100 MG CAP PO SCH ×2 (09:14→17:47)
[2016-10-16] MEDS: ARIPiprazole 5 MG TAB PO SCH (09:14)
[2016-10-16] MEDS: MAGNESIUM HYDROXIDE SUSP 30 ML CUP PO PRN (09:19)
[2016-10-16 21:20] VITALS: BP 159/75; PULSE 90; TEMP 96.3; O2SAT 95
[2016-10-16] MEDS: PRAVASTATIN SOD 80 MG TAB PO SCH (21:45)
[2016-10-16] MEDS: DONEPEZIL HCL 5 MG TAB PO SCH (21:45)
[2016-10-17] MEDS: LEVOTHYROXINE SODIUM 88 MCG TAB PO SCH (06:00)
[2016-10-17 06:04] VITALS: BP 175/79; PULSE 83; TEMP 97.8; O2SAT 97
[2016-10-17] MEDS: ARIPiprazole 5 MG TAB PO SCH (10:27)
[2016-10-17] MEDS: DICLOFENAC SODIUM 75 MG DELAYED RELEASE TAB PO SCH ×2 (10:27→20:38)
[2016-10-17] MEDS: ASPIRIN 81 MG CHEW TAB PO SCH (10:28)
[2016-10-17] MEDS: ESCITALOPRAM OXALATE 20 MG TAB PO SCH (10:28)
[2016-10-17] MEDS: clonazePAM 0.5 MG TAB PO SCH ×3 (10:28→18:26)
[2016-10-17] MEDS: NITROFURANTOIN MONOHYD MACROCR 100 MG CAP PO SCH ×2 (10:28→18:26)
[2016-10-17] MEDS: LOSARTAN 50 MG TAB PO SCH (10:28)
[2016-10-17] MEDS: ACETAMINOPHEN 325 MG TAB PO PRN (14:24)
--- NOTE | 2016-10-17 20:04 | EC ---
Study Study Date:10/17/2016 STUDY CONCLUSIONS SUMMARY - Left ventricle: The cavity size was normal. Wall thickness was normal. Systolic function was normal. The estimated ejection fraction was 55%. Wall motion was normal; there were no regional wall motion abnormalities. - Mitral valve: Mild regurgitation. - Right ventricle: The cavity size was mildly dilated. Wall thickness was normal. If LV function is below 40, please consider prescribing an ACEI or ARB or document rationale for non-use. PROCEDURE DATA STUDY STATUS: Elective. Procedure: Transthoracic echocardiography. Image quality was good. Scanning was performed from the parasternal, apical, and subcostal acoustic windows. Study completion: The patient tolerated the procedure well. Transthoracic echocardiography. M-mode, complete 2D, complete spectral Doppler, and color Doppler. Patient status: Inpatient. CARDIAC ANATOMY LEFT VENTRICLE: The cavity size was normal. Wall thickness was normal. Systolic function was normal. The estimated ejection fraction was 55%. Wall motion was normal; there were no regional wall motion abnormalities. AORTIC VALVE: Trileaflet; mildly thickened leaflets. Doppler: Transvalvular velocity was within the normal range. There was no stenosis. No regurgitation. Valve area: 2.04cm^2 (Vmax). Peak gradient: 10mm Hg (S). AORTA: Aortic root: The aortic root was normal in size. MITRAL VALVE: Structurally normal valve. Doppler: Transvalvular velocity was within the normal range. There was no evidence for stenosis. Mild regurgitation. Valve area by pressure half-time: 5.12cm^2. Mean gradient: 3mm Hg (D). LEFT ATRIUM: The atrium was normal in size. RIGHT VENTRICLE: The cavity size was mildly dilated. Wall thickness was normal. PULMONIC VALVE: Doppler: Transvalvular velocity was within the normal range. There was no evidence for stenosis. No regurgitation. TRICUSPID VALVE: Structurally normal valve. Doppler: Transvalvular velocity was within the normal range. Trace regurgitation. Peak gradient: 30mm Hg (D). PULMONARY ARTERY: The main pulmonary artery was normal-sized. Systolic pressure was within the normal range. RIGHT ATRIUM: The atrium was normal in size. PERICARDIUM: There was no pericardial effusion. SYSTEMIC VEINS: Inferior vena cava: The vessel was normal in size. BASIC MEASUREMENTS ADULT NORMAL Left ventricle LV internal dimension, ED, chordal level, 48.7 mm 43-52 PLAX LV internal dimension, ES, chordal level, 35.4 mm 23-38 PLAX Fractional shortening, chordal level, PLAX *27 % >29 LV posterior wall thickness, ED 9.84 mm IVS/LVPW ratio, ED 1.02 <1.3 Volume, ED, MOD, 1-plane 79 ml Volume, ES, MOD, 1-plane 35 ml Ejection fraction, MOD, 1-plane 56 % Stroke volume, MOD, 1-plane 44 ml Ventricular septum Septal thickness, ED 10 mm Aortic valve Leaflet separation *12 mm 15-26 Left atrium Anterior-posterior dimension 40 mm Right ventricle RV internal dimension, ED, PLAX 29.7 mm 19-38 BASIC MEASUREMENTS ADULT NORMAL Aortic valve Leaflet separation *12 mm 15-26 Aorta Root diameter, ED 29 mm 20-37 DOPPLER MEASUREMENTS ADULT NORMAL Aortic valve Peak velocity, S 162 cm/s VTI, S 35.3 cm Peak gradient, S 10 mm Hg Valve area, Vmax 2.04 cm^2 Mitral valve Peak E-wave velocity 70.6 cm/s Peak A-wave velocity 115 cm/s Mean velocity, D 75.6 cm/s Pressure half-time 43 ms Mean gradient, D 3 mm Hg Peak E/A ratio 0.6 Valve area, pressure half-time 5.12 cm^2 Tricuspid valve Peak gradient, D 30 mm Hg Maximal inflow velocity 276 cm/s Systemic veins Estimated CVP 10 mm Hg LEGEND: Mean values are shown as u=mean value. Asterisk (*) duong values outside specified normal range. Prepared and signed by Marianne Finn [id number]
[2016-10-17] MEDS: DONEPEZIL HCL 5 MG TAB PO SCH (20:37)
[2016-10-17] MEDS: PRAVASTATIN SOD 80 MG TAB PO SCH (20:37)
[2016-10-18 05:29] VITALS: BP 160/75; PULSE 85; RESP 18; TEMP 97.9; O2SAT 96
[2016-10-18] MEDS: LEVOTHYROXINE SODIUM 88 MCG TAB PO SCH (05:56)
[2016-10-18] MEDS: ESCITALOPRAM OXALATE 20 MG TAB PO SCH (08:37)
[2016-10-18] MEDS: ARIPiprazole 5 MG TAB PO SCH (08:37)
[2016-10-18] MEDS: LOSARTAN 50 MG TAB PO SCH (08:37)
[2016-10-18] MEDS: DICLOFENAC SODIUM 75 MG DELAYED RELEASE TAB PO SCH ×2 (08:38→20:14)
[2016-10-18] MEDS: NITROFURANTOIN MONOHYD MACROCR 100 MG CAP PO SCH ×2 (08:38→18:00)
[2016-10-18] MEDS: clonazePAM 0.5 MG TAB PO SCH ×3 (08:38→18:00)
[2016-10-18] MEDS: ASPIRIN 81 MG CHEW TAB PO SCH (08:38)
[2016-10-18 20:00] VITALS: BP 125/65; PULSE 86; RESP 16; TEMP 96.2
[2016-10-18] MEDS: DONEPEZIL HCL 5 MG TAB PO SCH (20:14)
[2016-10-18] MEDS: PRAVASTATIN SOD 80 MG TAB PO SCH (20:14)
[2016-10-19 06:03] VITALS: BP 190/86; PULSE 96; RESP 18; TEMP 97.8; O2SAT 99
[2016-10-19] MEDS: LEVOTHYROXINE SODIUM 88 MCG TAB PO SCH (06:27)
[2016-10-19 06:36] VITALS: BP 168/74
[2016-10-19] MEDS: LOSARTAN 50 MG TAB PO SCH (08:29)
[2016-10-19] MEDS: ARIPiprazole 15 MG TAB PO SCH (08:30)
[2016-10-19] MEDS: DICLOFENAC SODIUM 75 MG DELAYED RELEASE TAB PO SCH ×2 (08:30→21:07)
[2016-10-19] MEDS: NITROFURANTOIN MONOHYD MACROCR 100 MG CAP PO SCH ×2 (08:30→17:55)
[2016-10-19] MEDS: ESCITALOPRAM OXALATE 20 MG TAB PO SCH (08:30)
[2016-10-19] MEDS: clonazePAM 0.5 MG TAB PO SCH ×3 (08:30→17:54)
[2016-10-19] MEDS: ASPIRIN 81 MG CHEW TAB PO SCH (08:30)
[2016-10-19] MEDS: ACETAMINOPHEN 325 MG TAB PO PRN ×3 (08:31→23:27)
[2016-10-19 18:29] VITALS: BP 145/74; PULSE 84; RESP 20; TEMP 98.2; O2SAT 98
[2016-10-19] MEDS: DONEPEZIL HCL 5 MG TAB PO SCH (21:07)
[2016-10-19] MEDS: PRAVASTATIN SOD 80 MG TAB PO SCH (21:07)
[2016-10-19] MEDS: MAGNESIUM HYDROXIDE SUSP 30 ML CUP PO PRN (21:19)
[2016-10-19] MEDS: TEMAZEPAM 15 MG CAP PO PRN (23:27)
[2016-10-20] MEDS: LOSARTAN 50 MG TAB PO SCH ×2 (05:38→21:16)
[2016-10-20] MEDS: LEVOTHYROXINE SODIUM 88 MCG TAB PO SCH (05:40)
[2016-10-20 06:13] VITALS: BP 183/81; PULSE 78; RESP 16; TEMP 97.9; O2SAT 96
[2016-10-20 06:35] VITALS: BP 164/81; PULSE 73
[2016-10-20] MEDS: ESCITALOPRAM OXALATE 20 MG TAB PO SCH (08:09)
[2016-10-20] MEDS: ARIPiprazole 15 MG TAB PO SCH (08:09)
[2016-10-20] MEDS: NITROFURANTOIN MONOHYD MACROCR 100 MG CAP PO SCH ×2 (08:09→17:05)
[2016-10-20] MEDS: ASPIRIN 81 MG CHEW TAB PO SCH (08:09)
[2016-10-20] MEDS: clonazePAM 0.5 MG TAB PO SCH ×3 (08:10→17:05)
[2016-10-20] MEDS: DICLOFENAC SODIUM 75 MG DELAYED RELEASE TAB PO SCH ×2 (08:10→21:15)
[2016-10-20] MEDS: ACETAMINOPHEN 325 MG TAB PO PRN (17:05)
[2016-10-20 19:16] VITALS: BP 129/61; PULSE 80; RESP 17; TEMP 97.6; O2SAT 96
[2016-10-20] MEDS: PRAVASTATIN SOD 80 MG TAB PO SCH (21:15)
[2016-10-20] MEDS: DONEPEZIL HCL 5 MG TAB PO SCH (21:16)
[2016-10-20] MEDS: OLANZapine ODT 5 MG TAB PO SCH (21:16)
[2016-10-21 05:17] VITALS: BP 169/70; PULSE 75; RESP 16; TEMP 98.1; O2SAT 93
[2016-10-21] MEDS: LEVOTHYROXINE SODIUM 88 MCG TAB PO SCH (06:24)
[2016-10-21] MEDS: LOSARTAN 50 MG TAB PO SCH ×2 (08:17→21:08)
[2016-10-21] MEDS: clonazePAM 0.5 MG TAB PO SCH ×3 (08:17→17:10)
[2016-10-21] MEDS: DICLOFENAC SODIUM 75 MG DELAYED RELEASE TAB PO SCH ×2 (08:17→21:07)
[2016-10-21] MEDS: ESCITALOPRAM OXALATE 20 MG TAB PO SCH (08:17)
[2016-10-21] MEDS: ARIPiprazole 15 MG TAB PO SCH (08:17)
[2016-10-21] MEDS: NITROFURANTOIN MONOHYD MACROCR 100 MG CAP PO SCH ×2 (08:17→17:10)
[2016-10-21] MEDS: ASPIRIN 81 MG CHEW TAB PO SCH (08:17)
[2016-10-21] MEDS: ACETAMINOPHEN 325 MG TAB PO PRN (09:26)
[2016-10-21 18:41] VITALS: BP 165/70; PULSE 88; RESP 18; TEMP 98.6; O2SAT 94
[2016-10-21 19:00] VITALS: BP 165/70; PULSE 88; RESP 18; TEMP 98.6; O2SAT 94
[2016-10-21] MEDS: PRAVASTATIN SOD 80 MG TAB PO SCH (21:07)
[2016-10-21] MEDS: DONEPEZIL HCL 5 MG TAB PO SCH (21:08)
[2016-10-21] MEDS: OLANZapine ODT 5 MG TAB PO SCH (21:08)
[2016-10-22 04:45] VITALS: BP 179/74; PULSE 78; RESP 16; TEMP 97.9; O2SAT 97
[2016-10-22] MEDS: LEVOTHYROXINE SODIUM 88 MCG TAB PO SCH (05:32)
[2016-10-22] MEDS: cloNIDine HCL 0.2 MG TAB PO PRN (05:32)
[2016-10-22 06:45] VITALS: BP 122/56; PULSE 70
[2016-10-22] MEDS: ASPIRIN 81 MG CHEW TAB PO SCH (09:12)
[2016-10-22] MEDS: ESCITALOPRAM OXALATE 20 MG TAB PO SCH (09:12)
[2016-10-22] MEDS: LOSARTAN 50 MG TAB PO SCH ×2 (09:13→21:34)
[2016-10-22] MEDS: DICLOFENAC SODIUM 75 MG DELAYED RELEASE TAB PO SCH ×2 (09:13→21:35)
[2016-10-22] MEDS: NITROFURANTOIN MONOHYD MACROCR 100 MG CAP PO SCH ×2 (09:13→17:26)
[2016-10-22] MEDS: clonazePAM 0.5 MG TAB PO SCH ×3 (09:13→17:26)
[2016-10-22] MEDS: ARIPiprazole 15 MG TAB PO SCH (09:14)
[2016-10-22] MEDS: NIFEdipine 30 MG SUSTAINED RELEASE TAB PO SCH (15:15)
[2016-10-22] MEDS: ACETAMINOPHEN 325 MG TAB PO PRN (17:26)
[2016-10-22 18:00] VITALS: BP 142/74; PULSE 64; RESP 18; TEMP 97.8; O2SAT 98
[2016-10-22] MEDS: DONEPEZIL HCL 5 MG TAB PO SCH (21:35)
[2016-10-22] MEDS: OLANZapine ODT 5 MG TAB PO SCH (21:35)
[2016-10-22] MEDS: PRAVASTATIN SOD 80 MG TAB PO SCH (21:35)
[2016-10-23] MEDS: LEVOTHYROXINE SODIUM 88 MCG TAB PO SCH (06:04)
[2016-10-23 06:30] VITALS: BP 154/67; PULSE 76; RESP 18; TEMP 98; O2SAT 98
[2016-10-23] MEDS: DICLOFENAC SODIUM 75 MG DELAYED RELEASE TAB PO SCH ×2 (08:46→20:07)
[2016-10-23] MEDS: ASPIRIN 81 MG CHEW TAB PO SCH (08:47)
[2016-10-23] MEDS: ARIPiprazole 15 MG TAB PO SCH (08:47)
[2016-10-23] MEDS: NITROFURANTOIN MONOHYD MACROCR 100 MG CAP PO SCH ×2 (08:47→17:33)
[2016-10-23] MEDS: LOSARTAN 50 MG TAB PO SCH ×2 (08:47→20:07)
[2016-10-23] MEDS: ESCITALOPRAM OXALATE 20 MG TAB PO SCH (08:47)
[2016-10-23] MEDS: clonazePAM 0.5 MG TAB PO SCH ×3 (08:47→17:33)
[2016-10-23] MEDS: NIFEdipine 30 MG SUSTAINED RELEASE TAB PO SCH (08:47)
[2016-10-23] MEDS: ACETAMINOPHEN 325 MG TAB PO PRN (09:29)
[2016-10-23 16:34] VITALS: BP 145/76; PULSE 72; O2SAT 94
[2016-10-23 18:00] VITALS: BP 179/80; PULSE 68; RESP 17; TEMP 96.7; O2SAT 98
--- NOTE | 2016-10-23 18:14 | HHI.PR ---
Subjective Remarks No new complaints Objective Vitals Vital Signs Date Time Temp Pulse Resp B/P Pulse Ox O2 Delivery O2 Flow Rate FiO2 10/23/16 16:34 72 145/76 94 10/23/16 06:30 98.0 76 18 154/67 98 10/22/16 10/22/16 10/23/16 15:00 23:00 07:00 Intake Total 600 ml Balance 600 ml Intake Oral 600 ml Objective Remarks General: NAD, Awake, alert Chest: CTA Cardiac: Regular Abd: +BS, soft ND Ext: No edema Procedures 2D echo (10/17/16) - Estimated EF 55% - Mild mitral regurgitation - RV mildly dilated, wall thickness is normal. A/P Problem List: (1) Bipolar 1 disorder Status: Acute Plan: - Pt with some dementia and bipolar d/o with psychosis. - Cont current meds for HTN/hypothyroidism/hyperlipidemia - Psych issues per Dr Henry - Urine culture grew out Enterococcus faecium VRE. Pt has been afebrile and no specific urinary complaints. - CBC to be repeated to check WBC count. (2) Hypothyroid Status: Chronic Plan: - See above. (3) HTN (hypertension) Status: Chronic Plan: - Pt had been having some issues with elevated BP. - Procardia XL 30mg po daiy was added on 10/22/16 with improvement in her BP. - See above. - continue to observe - consider increasing procardia xl Assessment and Plan Patient examined. Assessment and plan formulated with Carolina Prasad PA-C. I agree with the above. Carolina Prasad Oct 23, 2016 18:14 Martinez Maki DO Oct 23, 2016 18:53
--- NOTE | 2016-10-23 19:34 | RADRPT ---
EXAM DATE/TIME: 10/23/2016 18:57 [facility] COMPARISON: No previous studies available for comparison. INDICATIONS : Cough. MEDICAL HISTORY : None. SURGICAL HISTORY : None. ENCOUNTER: Initial ACUITY: 1 day PAIN SCORE: 0/10 LOCATION: Bilateral chest FINDINGS: The lungs are clear without infiltrate, nodule, or mass. There is no appreciable pleural effusion fo r technique. Heart and mediastinum are unremarkable. CONCLUSION: No acute cardiopulmonary disease. Sharlene Jaimes MD on October 23, 2016 at 19:32 Board Certified Radiologist. This report was verified electronically.
[2016-10-23] MEDS: DONEPEZIL HCL 5 MG TAB PO SCH (20:08)
[2016-10-23] MEDS: PRAVASTATIN SOD 80 MG TAB PO SCH (20:08)
[2016-10-23] MEDS: LORazepam 0.5 MG TAB age > 65 yrs PO PRN (20:08)
[2016-10-23] MEDS: OLANZapine ODT 5 MG TAB PO SCH (20:09)
[2016-10-23] MEDS: TEMAZEPAM 15 MG CAP PO PRN (21:55)
[2016-10-24] MEDS: ACETAMINOPHEN 325 MG TAB PO PRN ×3 (00:38→21:21)
[2016-10-24 05:15] VITALS: BP 158/72; PULSE 62; RESP 18; TEMP 98.3; O2SAT 96
[2016-10-24] MEDS: LEVOTHYROXINE SODIUM 88 MCG TAB PO SCH (06:02)
[2016-10-24] MEDS: ASPIRIN 81 MG CHEW TAB PO SCH (08:18)
[2016-10-24] MEDS: DICLOFENAC SODIUM 75 MG DELAYED RELEASE TAB PO SCH ×2 (08:18→21:20)
[2016-10-24] MEDS: ESCITALOPRAM OXALATE 20 MG TAB PO SCH (08:18)
[2016-10-24] MEDS: NIFEdipine 30 MG SUSTAINED RELEASE TAB PO SCH (08:18)
[2016-10-24] MEDS: NITROFURANTOIN MONOHYD MACROCR 100 MG CAP PO SCH ×2 (08:18→17:04)
[2016-10-24] MEDS: clonazePAM 0.5 MG TAB PO SCH ×3 (08:18→17:04)
[2016-10-24] MEDS: LOSARTAN 50 MG TAB PO SCH ×2 (08:18→21:21)
[2016-10-24] MEDS: ARIPiprazole 15 MG TAB PO SCH (08:18)
[2016-10-24] MEDS: DONEPEZIL HCL 5 MG TAB PO SCH (21:20)
[2016-10-24] MEDS: PRAVASTATIN SOD 80 MG TAB PO SCH (21:21)
[2016-10-24] MEDS: OLANZapine ODT 5 MG TAB PO SCH (21:21)
[2016-10-24 21:55] VITALS: BP 147/68; PULSE 82; RESP 22; TEMP 98.1; O2SAT 97
[2016-10-24] MEDS: TEMAZEPAM 15 MG CAP PO PRN (22:18)
[2016-10-25] MEDS: ACETAMINOPHEN 325 MG TAB PO PRN (01:44)
[2016-10-25] MEDS: LEVOTHYROXINE SODIUM 88 MCG TAB PO SCH (05:25)
[2016-10-25 05:42] VITALS: BP 182/79; PULSE 84; RESP 20; TEMP 97.5; O2SAT 96
[2016-10-25] MEDS: cloNIDine HCL 0.2 MG TAB PO PRN (05:44)
[2016-10-25 06:45] VITALS: BP 137/63; PULSE 69
[2016-10-25 07:19] LABS: AUTOMATED NEUTROPHIL # 2.4 TH/MM3 (1.8-7.7); BASOPHIL % 0.1 % (0.0-2.0); EOSINOPHIL # 0.1 TH/MM3 (0-0.4); EOSINOPHIL % 1.4 % (0.0-4.0); HEMATOCRIT 31.5 % (35.0-46.0); HEMO FLAGS DIFF FINAL; LYMPH % 47.2 % (9.0-44.0); LYMPHOCYTE # 2.6 TH/MM3 (1.0-4.8); MEAN CELL VOLUME 83.2 FL (80.0-100.0); MEAN CORPUSCULAR HEMOGLOBIN 27.8 PG (27.0-34.0); MEAN CORPUSCULAR HGB CONC 33.5 % (32.0-36.0); MONO % 7.1 % (0.0-8.0); NEUT % 44.2 % (16.0-70.0); PLATELET COUNT 220 TH/MM3 (150-450); RED BLOOD COUNT 3.78 MIL/MM3 (4.00-5.30); RED CELL DISTRIBUTION WIDTH 15.4 % (11.6-17.2); WHITE BLOOD COUNT 5.4 TH/MM3 (4.0-11.0)
[2016-10-25] MEDS: ESCITALOPRAM OXALATE 20 MG TAB PO SCH (08:33)
[2016-10-25] MEDS: clonazePAM 0.5 MG TAB PO SCH ×2 (08:33→12:05)
[2016-10-25] MEDS: NIFEdipine 30 MG SUSTAINED RELEASE TAB PO SCH (08:33)
[2016-10-25] MEDS: NITROFURANTOIN MONOHYD MACROCR 100 MG CAP PO SCH (08:34)
[2016-10-25] MEDS: DICLOFENAC SODIUM 75 MG DELAYED RELEASE TAB PO SCH (08:34)
[2016-10-25] MEDS: ARIPiprazole 15 MG TAB PO SCH (08:34)
[2016-10-25] MEDS: ASPIRIN 81 MG CHEW TAB PO SCH (08:34)
[2016-10-25] MEDS: LOSARTAN 50 MG TAB PO SCH (08:35)
[2016-10-25] MEDS ORDERED: OLANZ5 PO (13:13)
[2016-10-25] MEDS ORDERED: ARIC5TAB PO (13:13)
[2016-10-25] MEDS ORDERED: CLON.5 PO (13:13)
[2016-10-25] MEDS ORDERED: ESCI20TA PO (13:13)
[2016-10-25] MEDS ORDERED: ARIP1TAB13 PO (13:13)
[2016-10-25] MEDS ORDERED: SYNT88TA PO (13:13)
[2016-10-25] MEDS ORDERED: DICL75TA PO (13:13)
[2016-10-25] MEDS ORDERED: COZA50TA PO (13:13)
[2016-10-25] MEDS ORDERED: NIFE30TA8 PO (13:13)
[2016-10-25] MEDS ORDERED: Aspirin Chew PO (13:13)
[2016-10-25] MEDS ORDERED: MACR100C2 PO (13:13)
--- NOTE | 2016-10-26 08:32 | MD ---
cc: MALKA GARDUNO ADMISSION DATE: 10/12/2016 DISCHARGE DATE: 10/25/2016 ADMISSION DIAGNOSIS [place] I: Bipolar affective disorder depressed with psychotic features. Dementia mild. [place] II: No diagnosis. [place] III: Hyponatremia secondary to SIADH, hypothyroidism, history of atrial fibrillation, urinary tract infection, questionable history of diabetes, questionable history of chronic obstructive pulmonary disease, hypertension, hyperlipidemia. [place] IV: Severity of psychosocial stressors moderate i.e. chronic psychiatric illness, multiple medical problems, change in living situation. [place] V: Current GAF score 30 DISCHARGE DIAGNOSIS [place] I: Bipolar affective disorder depressed with psychotic features. Dementia mild. [place] II: No diagnosis. [place] III: Hyponatremia secondary to SIADH, hypothyroidism, history of atrial fibrillation, urinary tract infection, questionable history of diabetes, questionable history of chronic obstructive pulmonary disease, hypertension, hyperlipidemia. [place] IV: Severity of psychosocial stressors moderate i.e. chronic psychiatric illness, multiple medical problems, change in living situation. [place] V: Current GAF score 60 HISTORY: This 76-year-old white female was brought to the emergency room of this hospital from assisted living facility under the [place] initiated by the police. She reportedly has been increasingly aggressive, paranoid and had made threats of harm to the staff. She is well known to me from her previous admission to this hospital and subsequent follow up in my office up until April of last year when she dropped out of treatment. Please refer to my initial evaluation for details. LABORATORY WORK UP: Complete blood count with differential showed RBC count of 3.7, hemoglobin 10.5 and hematocrit 31.5. Comprehensive metabolic profile was done on different dates and was essentially unremarkable except her triglycerides of 160. Serum B12 was normal T4, TSH was normal. The liver enzymes were normal. Urine drug screen was positive for benzodiazepines. Blood alcohol level was less than 3. Urinalysis on 09/1916 response require esterase and WBC 29, culture was indicated and was positive for Enterococcus Faecium. Repeated on 10/14 it was essentially unremarkable and culture was no longer indicated. Chest x-ray was negative for any acute cardiopulmonary disease. HOSPITAL COURSE When initially evaluated by me she looked very depressed and guarded, watchful and preoccupied with delusions, primarily focusing on her CPA who she believed had embezzled her funds and as such made her lose her condominium and a resulting placement in assisted living facility. She also believed that while on the unit she believed that she was being monitored and that there is some staff members who carried bombs and were out to harm her. To control her psychotic symptoms / stabilize her mood she was continued on Abilify the dose of which was gradually increased. She was also switched from Celexa to Lexapro antidepressant she had responded well to the past. After lengthy discussions with her it was agreed that a trial of some Zyprexa should be reinitiated. She had responded well to Zyprexa as far as her psychotic symptoms are concerned. She was specifically educated about the metabolic syndrome and side effect of Zyprexa and she understood and insisted on restarting her on it. With the change in her drug regimen. Her depression began to lift and the psychotic symptoms also gradually subsided to a point where by the end of the discharge she would seemed quite animated, very pleasant, open and no longer entertaining any delusional thoughts. Throughout this hospital stay she did not exhibit any aggressive self-destructive behavior nor did she make any threats of harm to self or others. As such it was felt by the treatment team that she has received optimum benefit out of this admission and was ready for discharge. The social work therapist contacted the assisted-living facility and were told that they would be willing to take her back. The patient also preferred to return to the same facility. So at the time of discharge she is denying any suicidal or homicidal ideations. She is not exhibiting any acute psychotic symptoms. MEDICATIONS discharge medications are 1. Abilify 50 mg p.o. daily #15 one refill. 2. Klonopin 0.5 mg p.o. t.i.d. #31 refill. 3. Diclofenac 75 mg p.o. b.i.d. #31 refill. 4. Aricept 5 mg. She is take two tablets p.o. q.h.s. #30 with one refill. 5. Lexapro 20 mg p.o. daily #15 one refill. 6. Synthroid 88 mcg p.o. daily at 06:00 a.m. #15. 7. Cozaar 50 mg p.o. b.i.d. #30. 8. Nifedipine ER 24-hour 30 mg one p.o. daily #15. 9. Macrobid 100 mg p.o. b.i.d. p.c. #10. 10. Zyprexa Zydis 5 mg p.o. q.h.s. #15 one refill. 11. Aspirin 81 mg p.o. daily #15 one refill. 12. She is to have outpatient psychiatric followup with me within 1 week and to follow up with her primary care physician. During this hospital stay she was seen in consultation by Dr. Alvin Trejo in regards to chest pain / hypertension and other medical issues. She was considered medically stable at the time of discharge. MD YAMIL Portillo/kodi /1:19 PM /8:28 AM
== END 2016-10-25 14:15 | DRG 885 ==
LOC: NEDAMB 13:25 → NEDA 23:52 → H250 10-13 01:10 → H260 10-17 17:43
PROVIDERS: ADMIT Psychiatry & Neurology Psychiatry; ATTEND Psychiatry & Neurology Psychiatry
DX: F31.5 Bipolar disorder, current episode depressed, severe, with psychotic features (principal); F03.90 Unspecified dementia, unspecified severity, without behavioral disturbance, psychotic disturbance, mood disturbance, and anxiety; N39.0 Urinary tract infection, site not specified; E22.2 Syndrome of inappropriate secretion of antidiuretic hormone; I48.91 Unspecified atrial fibrillation; E11.9 Type 2 diabetes mellitus without complications; E03.9 Hypothyroidism, unspecified; I10 Essential (primary) hypertension; B95.2 Enterococcus as the cause of diseases classified elsewhere; E78.5 Hyperlipidemia, unspecified; Z91.19 Patient's noncompliance with other medical treatment and regimen; Z91.5 Personal history of self-harm
CPT/HCPCS: 71010; 80053; 80061; 80307; 81001; 82607; 83036; 84439; 84443; 85025; 87077; 87086; 87186; 93005; 93306